=== PATIENT | female | born 1965 | race Caucasian/White ===

== ENCOUNTER 2017-04-22 10:45 | Emergency (ER) | payer OTHER ==
[~2017-04-22] VITALS: Ht 180.3 cm; Wt 78.9 kg
[2017-04-22] MEDS ORDERED: NAPROSYN500 MG PO (11:01)
== END 2017-04-22 13:01 | disposition home or self-care (01) ==
LOC: ED 10:45
DX: S60.212A Contusion of left wrist, initial encounter (principal); F17.200 Nicotine dependence, unspecified, uncomplicated; Z88.8 Allergy status to other drugs, medicaments and biological substances; W22.8XXA Striking against or struck by other objects, initial encounter; Y93.89 Activity, other specified; Y92.89 Other specified places as the place of occurrence of the external cause; Y99.8 Other external cause status

== ENCOUNTER → 2017-11-21 | Outpatient (CLI) | payer OTHER ==
[~2017-11-21] MED LIST: NAPROSYN500 MG PO
== END | disposition home or self-care (01) ==
LOC: RAD 15:20
DX: M25.512 Pain in left shoulder (principal)

== ENCOUNTER 2017-11-24 08:18 | Emergency (ER) | payer OTHER ==
[~2017-11-24] VITALS: Ht 180.3 cm; Wt 79.4 kg
[2017-11-24] MEDS ORDERED: MEDROL DOSEPAK4 MG PO (09:34)
== END 2017-11-24 09:44 | disposition home or self-care (01) ==
LOC: ED 08:18
DX: R22.0 Localized swelling, mass and lump, head (principal); T78.40XA Allergy, unspecified, initial encounter; Z88.6 Allergy status to analgesic agent; Z79.899 Other long term (current) drug therapy; Y92.9 Unspecified place or not applicable

== ENCOUNTER → 2024-02-28 | Outpatient (CLI) | payer OTHER ==
[~2024-02-28] MED LIST changes: +MEDROL DOSEPAK4 MG PO
== END | disposition home or self-care (01) ==
LOC: RAD 15:13
PROVIDERS: ATTEND Chiropractor
DX: M50.323 Other cervical disc degeneration at C6-C7 level (principal); M50.322 Other cervical disc degeneration at C5-C6 level; M50.321 Other cervical disc degeneration at C4-C5 level; M48.02 Spinal stenosis, cervical region; M47.812 Spondylosis without myelopathy or radiculopathy, cervical region